=== PATIENT | male | born 1970 | race Caucasian/White ===

== ENCOUNTER → 2021-01-03 | Emergency (ER) | payer SELFPAY ==
[~2021-01-03] VITALS: Ht 188 cm; Wt 90.7 kg
[2021-01-03 14:32] VITALS: BP 136/86
--- NOTE | 2021-01-03 14:32 | NUR ---
THE PATIENT IS BIB [address], RUNNING IN THE MIDDLE OF THE STRE[address] PER [employer] ON SCENE, SUSPECTED ETOH USE. THE PATIENT RESPONSIVE TO TACTILE STIMULI. IN ROOM AIR. RESPIRATION REGULAR AND UNLABORED. WILL CONTINUE TO MONITOR THE PATIENT.
--- NOTE | 2021-01-03 15:16 | NUR ---
SS Note: SW met with pt. bedside for homelessness and possible ETOH abuse. The pt. is an elderly male. The pt. appears dishevelved, responding to internal stimuli and very disorganized. SW placed homeless resources and homelesswaiver in chart to be completed upon discharge. SW will be available as needed.
[2021-01-03 15:29] LABS: BASOPHILS # (AUTO) 0.1 K/uL (0.0-0.2); BASOPHILS % (AUTO) 1.3 % (0.0-2.0); EOSINOPHILS % (AUTO) 1.6 % (0.0-6.0); HEMATOCRIT 42 % (39-51); HEMOGLOBIN 14.5 g/dL (13.5-17.5); LYMPHOCYTES # (AUTO) 1.6 K/uL (0.8-4.8); MEAN CORPUSCULAR HGB CONC 34 g/dl (31.0-36.0); MEAN CORPUSCULAR VOLUME 104 fL (80-96); MONOCYTES # (AUTO) 0.6 K/uL (0.1-1.30); MONOCYTES % (AUTO) 13.7 % (2.0-12.0); NEUTROPHILS # (AUTO) 2.3 K/uL (1.8-8.9); NEUTROPHILS % (AUTO) 49.4 % (43.0-81.0); PLATELET COUNT (AUTO) 179 K/uL (150-450); RED BLOOD CELL COUNT(AUTO) 4.05 MIL/uL (4.5-6.0); WHITE BLOOD COUNT (AUTO) 4.7 K/uL (4.3-11.0)
[2021-01-03 15:57] LABS: ALANINE AMINOTRANSFERASE 45 U/L (12-78); ALBUMIN 3.6 g/dL (3.4-5.0); ALCOHOL, BLOOD 496 mg/dL (0-0); ALKALINE PHOSPHATASE 91 U/L (46-116); ASPARTATE AMINOTRANSFERASE 152 U/L (15-37); BILIRUBIN,DIRECT 0.3 mg/dL (0.0-0.2); BILIRUBIN,TOTAL 0.5 mg/dL (0.2-1.0); CALCIUM, SERUM 7.9 mg/dL (8.5-10.1); CARBON DIOXIDE 26 mmol/L (21-32); CHLORIDE 106 mmol/L (98-107); CREATININE 0.8 mg/dL (0.6-1.3); GLUCOSE 101 mg/dL (74-106); POTASSIUM 3.4 mmol/L (3.5-5.1); SODIUM SERUM 145 mmol/L (136-145); TOTAL PROTEIN, SERUM 7.7 g/dL (6.4-8.2); UREA NITROGEN, BLOOD 7 mg/dL (7-18)
[2021-01-03 16:20] LABS: ACETAMINOPHEN < 2 ug/ml (10-30)
== END | disposition home or self-care (01) ==
LOC: ER 14:21
DX: F10.129 Alcohol abuse with intoxication, unspecified (principal); Z60.2 Problems related to living alone; Y90.8 Blood alcohol level of 240 mg/100 ml or more
CPT/HCPCS: 36415; 80048-TC; 80076-TC; 85025-TC; G0480